=== PATIENT | female | born 1950 | race Caucasian/White ===

== ENCOUNTER 2017-06-16 08:24 | Emergency (ER) | payer OTHER ==
[~2017-06-16] VITALS: Ht 167.6 cm; Wt 54.4 kg
[~2017-06-16 08:24] MED LIST: LORAZEPAM0.5 M1 PO
--- NOTE | 2017-06-16 09:24 | ED PSYCHIATRIC COMPLAINT ---
See Addendum History of Present Illness General Chief Complaint: ETOH/Drug Related Complaint Stated Complaint: ALCOHOL DETOX Source: patient, COURT APPOINTED CONSERVATOR Exam Limitations: poor historian Vital Signs & Intake/Output Vital Signs & Intake/Output Vital Signs Date Time Temp Pulse Resp B/P B/P Pulse O2 O2 Flow FiO2 Mean Ox Delivery Rate 06/16 2234 98.0 89 16 135/78 99 Room Air 06/16 1625 98.9 97 16 123/78 99 Room Air 06/16 1624 98.9 97 16 123/78 06/16 1304 97.1 102 122/69 97 06/16 0829 96.6 93 20 126/75 95 Room Air ED Intake and Output 06/17 0000 06/16 1200 Intake Total Output Total Balance Patient 120 lb Weight Weight Reported by Patient Measurement Method Allergies Coded Allergies: gabapentin (From NEURONTIN) (Intermediate, auditory and visual hallucinations ) amoxicillin (From AUGMENTIN) (GI 06/01/16) clavulanic acid (From AUGMENTIN) (GI 06/01/16) Reconcile Medications No Known Home Medications Triage Note: PT TO ED FOR "ALCOHOL", LAST ADMITTED LAST YEAR. PT IS AWAKE, ALERT, ORIENTED, CALM, COOPERATIVE. Triage Nurses Notes Reviewed? yes HPI: Patient presents for evaluation of severe alcohol dependence and need for detox. The patient has been drinking for greater than 20 years and although she states she only drinks one bottle of wine per day her court appointed conservator states it's closer to 2-2-1/2 bottles of wine per day. Her last alcoholic beverage was last night at about 9:00. She denies any prior history of alcohol withdrawal seizures. Patient has 2, according to her conservator, outstanding DUI warrants. He states that her memory has been failing that she will often become disoriented during the day. The patient herself has no complaint at this time, denying chest pain and shortness of breath or abdominal pain. (BE NORTON,KRISTIAN Hudson) Past History Travel History Traveled to [place] past 21 day No Medical History Any Pertinent Medical History? 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 No (BE NORTON,KRISTIAN Hudson) Review of Systems Review of Systems Constitutional: Reports: no symptoms. EENTM: Reports: no symptoms. Respiratory: Reports: no symptoms. Cardiovascular: Reports: no symptoms. GI: Reports: no symptoms. Genitourinary: Reports: no symptoms. Musculoskeletal: Reports: no symptoms. Skin: Reports: no symptoms. Neurological/Psychological: Reports: no symptoms. Hematologic/Endocrine: Reports: no symptoms. Immunologic/Allergic: Reports: no symptoms. All Other Systems: Reviewed and Negative (BE NORTON,KRISTIAN Hudson) Physical Exam Physical Exam General Appearance: SEE BELOW Neurological/Psychiatric: SEE BELOW Comments: General: Alert, calm, cooperative, thin Head: Normocephalic, atraumatic Eyes: Normal inspection, no nystagmus, EOMI Ears: Normal inspection Nose: Normal inspection Throat: Moist mucosa Neck: Supple, no goiter Heart: Regular rate and rhythm, no murmurs rubs or gallops Lungs: Clear to auscultation bilaterally with good air entry Abdomen: Soft nontender nondistended, normal bowel sounds Chest: Nontender Extremities: Normal range of motion grossly, mild tremors present, no cyanosis clubbing or edema of the upper extremities Neurologic: cranial nerves II through XII grossly intact, speech clear, gait normal Psychiatric: No apparent delusions or hallucinations, no pressured speech or thought blocking (BE NORTON,KRISTIAN Hudson) SAD PERSONS Done? CRISIS CONSULT OBTATINED (SOLO NORTON,LAURO Echeverria) Progress Differential Diagnosis: alcohol intoxication, alcohol withdrawal, Korsakoff psychosis, dementia Plan of Care: Orders Procedure Date/time Status ED CRISIS PSYCH CONSULT 06/16 1456 Active Patient Safety Monitor 06/16 923 Active CIWA 06/16 923 Complete URINE DRUG SCREEN FOR ER ONLY 06/16 923 Complete MAGNESIUM 06/16 923 Complete LIPASE 06/16 923 Complete ETHANOL 06/16 923 Complete COMPREHENSIVE METABOLIC PANEL 06/16 923 Complete CBC WITHOUT DIFFERENTIAL 06/16 923 Complete Laboratory Tests 06/16/17 1306: Urine Opiates Screen < 100.00, Methadone Screen < 40, Barbiturate Screen < 60, Ur Phencyclidine Scrn < 6.00, Amphetamines Screen < 100, U Benzodiazepines Scrn < 85, Urine Cocaine Screen < 50, Urine Cannabis Screen < 5.00 06/16/17 1018: Anion Gap 16, Estimated GFR > 60, BUN/Creatinine Ratio 14.0, Glucose 134 H, Calcium 9.4, Magnesium 1.8, Total Bilirubin 0.5, AST 106 H, ALT 81 H, Alkaline Phosphatase 97, Total Protein 6.9, Albumin 4.5, Globulin 2.4, Albumin/Globulin Ratio 1.9, Lipase 490 H, CBC w Diff NO MAN DIFF REQ, RBC 3.69 L, MCV 99.4 H, MCH 33.7 H, RDW 13.3, MPV 7.2 L, Gran % 59.7, Lymphocytes % 26.5, Monocytes % 11.9 H, Eosinophils % 1.5, Basophils % 0.4, Absolute Granulocytes 3.2, Absolute Lymphocytes 1.4, Absolute Monocytes 0.6, Absolute Eosinophils 0.1, Absolute Basophils 0, PUBS MCHC 34.0, Serum Alcohol 41.0 Diagnostic Imaging: Discussed w/RAD: CT Scan. Radiology Impression: PATIENT: KRYSTAL ORNELAS PRESENT AGE: 67 PATIENT ACCOUNT NO: [id number] : 51 LOCATION: [facility] ORDERING PHYSICIAN: KRISTIAN LR MD SERVICE DATE: 06/16/17 EXAM TYPE: CAT - CT HEAD WO IV CONTRAST EXAMINATION: CT HEAD WITHOUT CONTRAST CLINICAL INFORMATION: Status post fall on Friday with left temporal ecchymoses. Head trauma. COMPARISON: None TECHNIQUE: Contiguous axial imaging was performed from the skull base to vertex without intravenous administration of contrast. DLP: 630.00 mGy-cm FINDINGS: There is no evidence of acute intracranial hemorrhage or territorial infarction. No abnormal mass effect or midline shift is seen. Daigle to white matter differentiation is well preserved. No extra-axial fluid collections are identified. The ventricles and sulci are mildly enlarged, consistent with involutional changes. Mild periventricular deep white matter low -attenuation is seen, consistent with ischemic small vessel disease. The osseous structures and soft tissues are normal. The mastoid air cells and visualized portions of the paranasal sinuses are well aerated. IMPRESSION: 1. No acute intracranial pathology. 2. Mild involutional changes and findings of ischemic small vessel disease in the periventricular deep white matter. DICTATED BY: KIRSTEN OVALLE MD DATE/TIME DICTATED:06/16/171358 HOME APPLIANCE TECHNICIAN:GELY DATE/TIME TRANSCRIBED:06/16/171358 CONFIDENTIAL, DO NOT COPY WITHOUT APPROPRIATE AUTHORIZATION. <Electronically signed in Other Vendor System> SIGNED BY: KIRSTEN OVALLE MD 06/16/17 6835 Comments: 06/16/2017 12:15:46 PM I have updated Kailee and her conservator on test results. I have also notified them that she is not manifesting any significant signs of alcohol withdrawal. She does not qualify for inpatient detox at this time. Her alcohol induced hepatitis and pancreatitis are mild and I suspect would resolve spontaneously with cessation of alcohol intake. I have discussed her care with case management and we will assess for capacity to make medical decisions. 06/16/2017 2:40:16 PM patient's conservator is speaking with case management regarding hospitalization for alcohol detox. Unfortunately the patient does not meet inpatient detox criterion according to the [facility] emergency medicine alcohol detoxification protocol. He has also declined "going anywhere else" for detox. Conservator however was insistent that he speak with case management. Disposition is pending. Patient otherwise appears comfortable with only mild tremors. 06/16/2017 2:56:51 PM during discussion with case management, the conservator apparently expressed concern for the patient's safety. He suspects that she is suicidal at times. Crisis consultation has been ordered. 06/16/2017 6:58:15 PM crisis has evaluated Kailee and feels she does not require hospitalization for suicide ideation. However they will seek detox placement. Patient signed out to Dr. Cisneros. (BE NORTON,KRISTIAN Hudson) Hand-Off Endorsed To: KRISTIAN GARDUNO DO Endorsed Time: 0700 Pending: other (RE-EVAL) (SOLO NORTON,LAURO Echeverrai) Departure Departure Disposition: STILL A PATIENT Condition: Stable Clinical Impression Primary Impression: Alcohol dependence Qualifiers: Substance use status: uncomplicated Qualified Code: F10.20 - Alcohol dependence, uncomplicated Referrals: JONH PORTILLO MD (PCP/Family) Departure Forms: Customer Survey General Discharge Information Prescriptions: Current Visit Scripts No Known Home Medications (BE NORTON,KRISTIAN Hudson)
[2017-06-16 10:40] LABS: ABSOLUTE BASOPHIL COUNT 0 /CUMM (0.0-0.2); ABSOLUTE EOSINOPHIL COUNT 0.1 /CUMM (0.0-0.7); ABSOLUTE GRANULOCYTE CT 3.2 /CUMM (1.4-6.5); ABSOLUTE LYMPH COUNT 1.4 /CUMM (1.2-3.4); ABSOLUTE MONOCYTE COUNT 0.6 /CUMM (0.10-0.60); BASOPHIL % 0.4 % (0.0-2.0); EOSINOPHIL % 1.5 % (0-5); GRANULOCYTE % 59.7 % (42.2-75.2); HEMATOCRIT 36.7 % (37-47); MEAN CORPUSCULAR HGB 33.7 PG (27.0-31.0); MEAN CORPUSCULAR VOLUME 99.4 FL (81.0-99.0); MEAN PLATELET VOLUME 7.2 FL (7.4-10.4); PLATELET COUNT 165 /CUMM (130-400); RBC DISTRIBUTION WIDTH 13.3 % (11.5-14.5); RED BLOOD CELL CT 3.69 /CUMM (4.20-5.40); WHITE BLOOD CELL COUNT 5.4 /CUMM (4.8-10.8)
--- NOTE | 2017-06-16 14:09 | CT SCAN REPORT ---
EXAMINATION: CT HEAD WITHOUT CONTRAST CLINICAL INFORMATION: Status post fall on Friday with left temporal ecchymoses. Head trauma. COMPARISON: None TECHNIQUE: Contiguous axial imaging was performed from the skull base to vertex without intravenous administration of contrast. DLP: 630.00 mGy-cm FINDINGS: There is no evidence of acute intracranial hemorrhage or territorial infarction. No abnormal mass effect or midline shift is seen. Daigle to white matter differentiation is well preserved. No extra-axial fluid collections are identified. The ventricles and sulci are mildly enlarged, consistent with involutional changes. Mild periventricular deep white matter low-attenuation is seen, consistent with ischemic small vessel disease. The osseous structures and soft tissues are normal. The mastoid air cells and visualized portions of the paranasal sinuses are well aerated. IMPRESSION: 1. No acute intracranial pathology. 2. Mild involutional changes and findings of ischemic small vessel disease in the periventricular deep white matter.
--- NOTE | 2017-06-16 19:36 | ED PSYCH CRISIS CONSULTATION ---
Crisis Consult Basic Assessment Date of Consult: 06/16/17 Responsible Person/Accompanied By: Brought in by her power of disability attorney / neighbor Insurance Authorization: Insurance #1: Insurance name: MEDICARE - [place] Phone number: Policy number: [id number] Group number: [id number] Authorization number: ED Provider: Patient's ED Provider: KRISTIAN SCHUMACHER MD Primary Care Physician: Patient's PCP: JONH PORTILLO MD PCP's Current Psychiatrist: None Chief Complaint: Alcohol Abuse Patient's Quote: "Alcohol...I have to cease...need to detox" Present Illness: Patient presents to [facility] emergency department with primary complaint of alcohol abuse. Patient's blood ethanol level at admission was ~ 0.04. Patient also has had decreased functioning (anhedonia, sadness, loss of appetite, isolative behavior) due to depression. Patient's October 2016. Patient has a conservator of estate / person Mr. Jolene Lee [phone]. Patient reports she has been drinking about two bottles of wine every day. Patient indicates long-standing concern of alcohol abuse for over ten years. Patient has been admitted to [facility] for inpatient psychiatry in May 2016. Prior to that, patient was admitted for detox/rehabilitation at [facility], [facility], [facility], and [facility]. Patient reports she is not currently on any medication. Patient has no medical concerns currently. Patient does indicate a symptom of "shakiness" - patient does not meet criteria for acute alcohol withdrawal at this time per emergency room attending physician. Patient denies any current mental health treatment provider. Patient has a neurologist, Dr. Beatriz Dave MD. Conservator reports patient is referred for a neuropsychology evaluation. Patient per conservator report has been arrested four times in the past year ( twice for driving under the influence and twice for verbal domestic altercations with her ). About two weeks ago, patient was arrest for driving under the influece per conservator. Conservator is concerned for patient's safety because she has been "on the couch for five days" and has not been attending to some activities of daily living (care of pets, meals, cleaning). Conservator believes patient may be at risk for incarceration due to repeated charges of DUI. Patient has close family members , no biological children, and limited support. Patient's conservator who is a neighbor is her primary source of support. Patient presented anxious initially during evaluation but gradually became calm and relaxed. Patient reports being nervous because of "this room" (hospital crisis room). Patient denies any suicidality past or present. Patient denies current suicidal ideation, intent or plan. Patient denies feelings of hopelessness. There is no evidence of any current psychosis. There is no history of suicidality or psychosis. Only known historical diagnosis is unspecified depressive disorder and alcohol use disorder, severe. Patient's Address: [address] [place] [address] Other *JOLENE Who Do You Live With? Patient/Self Family/Informants Interviewed: Conservator - Jolene Gutiérrez Allergies - Coded Allergies: gabapentin (From NEURONTIN) (Intermediate, auditory and visual hallucinations ) amoxicillin (From AUGMENTIN) (GI 06/01/16) clavulanic acid (From AUGMENTIN) (GI 06/01/16) Current Medications - No Known Home Medications Laboratory Results: Laboratory Tests 06/16/17 1306: Urine Opiates Screen < 100.00, Methadone Screen < 40, Barbiturate Screen < 60, Ur Phencyclidine Scrn < 6.00, Amphetamines Screen < 100, U Benzodiazepines Scrn < 85, Urine Cocaine Screen < 50, Urine Cannabis Screen < 5.00 06/16/17 1018: Anion Gap 16, Estimated GFR > 60, BUN/Creatinine Ratio 14.0, Glucose 134 H, Calcium 9.4, Magnesium 1.8, Total Bilirubin 0.5, AST 106 H, ALT 81 H, Alkaline Phosphatase 97, Total Protein 6.9, Albumin 4.5, Globulin 2.4, Albumin/Globulin Ratio 1.9, Lipase 490 H, CBC w Diff NO MAN DIFF REQ, RBC 3.69 L, MCV 99.4 H, MCH 33.7 H, RDW 13.3, MPV 7.2 L, Gran % 59.7, Lymphocytes % 26.5, Monocytes % 11.9 H, Eosinophils % 1.5, Basophils % 0.4, Absolute Granulocytes 3.2, Absolute Lymphocytes 1.4, Absolute Monocytes 0.6, Absolute Eosinophils 0.1, Absolute Basophils 0, PUBS MCHC 34.0, Serum Alcohol 41.0 (CHELO PEPE,DAMIAN) Past History Past Medical History Neurological: NONE EENT: NONE Cardiovascular: NONE Respiratory: NONE Gastrointestinal: colitis, FROM [facility] 01/2013 LOOSE STOOL Hepatic: NONE Renal: NONE Musculoskeletal: NONE Psychiatric: alcohol dependence, anxiety, depression Endocrine: NONE Blood Disorders: NONE Cancer(s): NONE 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 Past Surgical History Surgical History: non-contributory Psychosocial History Strengths/Capabilities: seeking help, motivated for sobriety, wants to feel better Physical Limitations (Interventions): none reported Psychiatric Treatment History Psych Treatment Psychiatric Treatment Yes Inpatient Treatment Yes Outpatient Treatment Yes Location of Treatment [facility] Reason for Treatment alcohol use disorder, depression, anxiety Dates of Treatment May 2016 Response to Treatment patient did relapse to alcohol abuse shortly after discharge Diagnosis by History: Depression, anxiety , alcohol use disorder Substance Use/Abuse History Drug Use/Abuse 1 Substances Used/Abused Yes Substance Used/Abused Alcohol First Use unknown Last Used Past 24 hours How much used/taken About 2 bottles of wine yesterday How often Daily For how long Past 10 years per patient report Route of use Ingestion Drug Use/Abuse 2 Substances Used/Abused Yes Substance Used/Abused Marijuana First Use Unknown Last Used 40 years ago How much used/taken unknown How often unknown For how long unknown Route of use unknown Drug Use/Abuse 3 Substances Used/Abused Yes Substance Used/Abused Hallucinogens First Use Unknown Last Used 40 years ago How much used/taken unknown How often unknown For how long unknown Route of use unkown Drug Use/Abuse 4 Substances Used/Abused Yes Substance Used/Abused Cocaine First Use unknown Last Used 40 years ago How much used/taken unknown How often unknown For how long unknown Route of use unknown Substance Abuse Treatment Substance Abuse Treatment Past Substance Abuse TX Yes Inpatient Treatment Yes Outpatient Treatment Yes Location of Treatment [facility] R. Reason for Treatment Alcohol use disorder Dates of Treatment Unknown Response to Treatment Varied Comments: - (DAMIAN WHITNEY LCSW) Current Mental Status Mental Status Orientation: Person, Place, Situation Affect: Anxious, Depressed Speech: Soft Neuro-vegetative: Anhedonia, Concentration Poor, Energy Decreased, Loss of Interest Appearance Appearance- Dress/Hygiene: Patient dressed in hospital attire. Behaviors Thought Process: WNL Thought Content: WNL Memory: WNL Insight: WNL SI/HI Risk Assessment Past Suicidal Ideation/Attempts No (Patient denies ) Current Suicidal Ideation/Att No Past Homicidal Ideation/Att: No Current Homicidal Ideation/Attempts No Degree of Intent: None Gravely Disabled: Poor Impulse Control Risk Factors: age (under 24/over 65), high anxiety/distress, SA/MH hospitalized, substance abuse, isolate/no social support, poor impulse control, lives alone, limited support Lethality Ratin PTSD Checklist PTSD Done? patient declined (No history of trauma reported) ED Management Sitter: Yes Restraints: No (Patient is calm & cooperative) (CHELO PEPE,DAMIAN) DSM5/PS Stressors/Medical Prob Diagnosis' (DSM 5, Stressors, Medical): F10.20 Alcohol use disorder, sever F32.9 Unspecified depressive disorder Current GAF: 40 (DAMIAN WHITNEY LCSW) Departure Disposition Psych Medical Clearance Date: 06/16/17 Medically Cleared at: 1800 Time Started: 1800 Time Ended: 1900 Psychiatrist Consulted: Robert Muse MD Date Disposition Established: 06/16/17 Time Disposition Established: 1899 Plan for Disposition - Modality: Detox / Rehabilitation Facility: To be determined Rationale for Disposition: Patient crisis evaluation reviewed with on-call psychiatrist Dr. Muse and attending emergency department physician Dr. Schumacher. Patient does not meet criteria for medical admission and also does not meet criteria for an inpatient psychiatric admission. Patient is referred to a detox / rehabilitation facility. Patient's conservator is informed this would be on a voluntary basis and that transport / admission may have to be arranged by patient or patient's conservator on her behalf. Referrals JONH PORTILLO MD (PCP/Family) (DAMIAN WHITNEY LCSW) Addendum Addendum Pt transported to [facility] per Dr. Cisneros and Dr. Moy recommendation. [facility] informed by this data analyst report writer. (SWATI PEPE,LENCHO)
[2017-06-17 14:08] VITALS: BP 130/85
== END 2017-06-17 14:15 ==
LOC: ERH 08:24
PROVIDERS: Emergency Medicine
DX: F10.20 Alcohol dependence, uncomplicated (principal)
CPT/HCPCS: 80307; G0463; G0480